=== PATIENT | female | born 1985 | race African-American/Black ===

== ENCOUNTER 2016-11-01 03:25 | Emergency (ER) | payer OTHER ==
[~2016-11-01] VITALS: Ht 157.5 cm; Wt 99.8 kg
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
[2016-11-01 03:45] VITALS: BP 174/94
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
== END 2016-11-01 06:39 ==
LOC: ERH 03:25
DX: S09.90XA Unspecified injury of head, initial encounter (principal); Y04.8XXA Assault by other bodily force, initial encounter
CPT/HCPCS: 81025